=== PATIENT | male | born 1965 | race Caucasian/White ===

== ENCOUNTER 2017-07-13 05:53 | Inpatient (IN) | payer SELFPAY ==
[2017-07-13] MEDS ORDERED: Nitroglycerin 2% Ointment Foilpak UD TOP ONE (06:01)
[2017-07-13] MEDS ORDERED: Morphine 4 MG/ML VIAL ONE ×3 (06:02→08:26)
[2017-07-13] MEDS ORDERED: Heparin25000 units/250ml 1/2NS 25,000 UNITS/250 ML BAG IV ONE (06:12)
[2017-07-13 06:17] LABS: BASO % 0.1 % (0.0-2.0); EOS # 0.4 K/uL (0.0-0.7); EOS % 4.8 % (0.0-4.0); HEMATOCRIT 44.4 % (35.0-51.0); LYMPH # 2.2 K/uL (1.0-4.3); LYMPH % 27.5 % (20.0-40.0); MEAN CELL VOLUME 89.9 fL (80.0-94.0); MEAN CORPUSCULAR HEMOGLOBIN 31.4 pg (27.0-31.0); MEAN CORPUSCULAR HGB CONC 34.9 g/dL (33.0-37.0); MEAN PLATELET VOLUME 8.6 fL (7.2-11.7); MONO # 0.8 K/uL (0.0-0.8); MONO % 9.8 % (0.0-10.0); RED CELL DISTRIBUTION WIDTH 14.5 % (11.5-14.5); WHITE BLOOD COUNT 7.9 K/uL (4.8-10.8)
[2017-07-13 06:27] LABS: ALKALINE PHOSPHATASE 153 U/L (38-126); ALT/SGPT 45 U/L (21-72); AST/SGOT 24 U/L (17-59); BILIRUBIN,TOTAL 0.8 mg/dL (0.2-1.3); BLOOD UREA NITROGEN 12 mg/dL (9-20); CALCIUM 8.5 mg/dl (8.6-10.4); CARBON DIOXIDE 26 mmol/L (22-30); CHLORIDE 100 mmol/L (98-107); CHOLESTEROL 263 mg/dL (0-199); GFR AFRICAN-AMERICAN > 60; GLUCOSE,RANDOM 222 mg/dL (75-110); POTASSIUM 3.6 mmol/L (3.6-5.2); SODIUM 135 mmol/L (132-148); TOTAL PROTEIN 8.4 g/dL (6.3-8.3)
--- NOTE | 2017-07-13 06:44 | CP.PCM.HP ---
<Vipul Kapadia - Last Filed: 07/13/17 06:47> History of Present Illness - History of Present Illness History of Present Illness: PGY-1 H&P for Dr. Tripathi CC: [facility] This is a 52 year old male with no PMHx who comes in as a [facility]. Patient was awoken this morning with stabbing and squeezing chest pain localized along the left side of the chest wall. There is associated dyspnea, diaphoresis, numbness in both arms. Patient called the ambulance and EKG was taken en route which showed ST segment elevations in leads II, III, aVF and ST segment depressions in I and aVL. Patient was given full dose aspirin in the ambulance. In the ED, patient was given 1 inch of nitro-paste, 4 mg IV morphine, Brillinta 180, heparin bolus (then switched to drip). Patient states that his pain is now decreased to a 2/10 after medical management and is now not in acute distress. Patient is for cardiac cath. PMHx: denies PSHx: appendectomy Allergies: NKDA Social: Smokes 1 ppd since age 35. Social drinker, does not drink weekly. Denies drugs. 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 Family Hx: Father of MA at age 70. Mother of colon cancer. Home meds: denies PMD: None Present on Admission - Present on Admission Any Indicators Present on Admission: No Review of Systems - Constitutional Constitutional: Excessive Sweating - EENT Eyes: absent: Change in Vision - Cardiovascular Cardiovascular: Chest Pain, Diaphoresis - Respiratory Respiratory: Dyspnea - Gastrointestinal Gastrointestinal: absent: Abdominal Pain, Nausea, Vomiting - Genitourinary Genitourinary: absent: Dysuria - Musculoskeletal Musculoskeletal: Numbness (bilateral arm) - Integumentary Integumentary: absent: Rash - Neurological Neurological: Numbness (bilateral arms) - Psychiatric Psychiatric: Anxiety - Endocrine Endocrine: absent: Palpitations Past Patient History - Past Social History Smoking Status: Heavy Smoker > 10 Cigarettes Daily - PSYCHIATRIC Hx Substance Use: No - SURGICAL HISTORY Hx Appendectomy: Yes Meds Allergies/Adverse Reactions: Allergies Allergy/AdvReac Type Severity Reaction Status Date / Time No Known Allergies Allergy Verified 07/13/17 06:03 Physical Exam - Constitutional Appears: No Acute Distress - Head Exam Head Exam: ATRAUMATIC, NORMOCEPHALIC - Eye Exam Eye Exam: EOMI, PERRL - ENT Exam ENT Exam: Mucous Membranes Moist - Respiratory Exam Respiratory Exam: Clear to Auscultation Bilateral. absent: Rales, Rhonchi, Wheezes - Cardiovascular Exam Cardiovascular Exam: REGULAR RHYTHM, +S1, +S2. absent: Diastolic murmur, Systolic Murmur - GI/Abdominal Exam GI & Abdominal Exam: Distended, Normal Bowel Sounds, Soft. absent: Tenderness - Extremities Exam Extremities exam: Negative for: pedal edema, tenderness - Neurological Exam Neurological exam: Alert, CN II-XII Intact, Oriented x3 - Psychiatric Exam Psychiatric exam: Normal Affect, Normal Mood - Skin Skin Exam: Dry, Intact, Warm Results - Vital Signs Recent Vital Signs: Last Vital Signs Temp 97.6 F 07/13/17 06:22 Pulse 65 07/13/17 06:22 Resp 14 07/13/17 06:22 BP 163/103 H 07/13/17 06:22 Pulse Ox 100 07/13/17 06:22 - Labs Result Diagrams: 07/13/17 06:12 07/13/17 06:12 Labs: Laboratory Results - last 24 hr 07/13/17 07/13/17 07/13/17 06:12 06:12 06:12 WBC 7.9 RBC 4.94 Hgb 15.5 Hct 44.4 MCV 89.9 MCH 31.4 H MCHC 34.9 RDW 14.5 Plt Count 275 MPV 8.6 Neut % (Auto) 57.8 Lymph % (Auto) 27.5 [place] % (Auto) 9.8 Eos % (Auto) 4.8 H Baso % (Auto) 0.1 Neut # 4.6 Lymph # 2.2 [place] # 0.8 Eos # 0.4 Baso # 0.0 Sodium 135 Potassium 3.6 Chloride 100 Carbon Dioxide 26 Anion Gap 13 BUN 12 Creatinine 0.7 L Est GFR ( Amer) > 60 Est GFR (Non-Af Amer) > 60 POC Glucose (mg/dL) 211 H Random Glucose 222 H Calcium 8.5 L Total Bilirubin 0.8 AST 24 ALT 45 Alkaline Phosphatase 153 H Total Protein 8.4 H Albumin 4.2 Globulin 4.2 H Albumin/Globulin Ratio 1.0 Triglycerides 317 H Cholesterol 263 H HDL Cholesterol 46 Assessment & Plan - Assessment and Plan (Free Text) Plan: Code [facility], possible Inferior STEMI EKG in ambulance showed ST segment elevations in leads II, III, aVF Repeat EKG in the ED did not demonstrate the ST segment elevations seen on prior study f/u cardiac enzymes Patient is for cardiac catheterization Newly diagnosed diabetes BG 211 f/u hemoglobin A1c Case DW Dr. Bhumi Kapadia PGY-1 <Dimitri Tripathi P - Last Filed: 07/13/17 06:59> Results - Vital Signs Recent Vital Signs: Last Vital Signs Temp 97.6 F 07/13/17 06:22 Pulse 71 07/13/17 06:40 Resp 18 07/13/17 06:40 BP 154/91 H 07/13/17 06:40 Pulse Ox 100 07/13/17 06:57 - Labs Result Diagrams: 07/13/17 06:12 07/13/17 06:12 Labs: Laboratory Results - last 24 hr 07/13/17 07/13/17 07/13/17 06:12 06:12 06:12 WBC 7.9 RBC 4.94 Hgb 15.5 Hct 44.4 MCV 89.9 MCH 31.4 H MCHC 34.9 RDW 14.5 Plt Count 275 MPV 8.6 Neut % (Auto) 57.8 Lymph % (Auto) 27.5 [place] % (Auto) 9.8 Eos % (Auto) 4.8 H Baso % (Auto) 0.1 Neut # 4.6 Lymph # 2.2 [place] # 0.8 Eos # 0.4 Baso # 0.0 PT 10.8 INR 1.0 APTT 29 Sodium 135 Potassium 3.6 Chloride 100 Carbon Dioxide 26 Anion Gap 13 BUN 12 Creatinine 0.7 L Est GFR ( Amer) > 60 Est GFR (Non-Af Amer) > 60 POC Glucose (mg/dL) Random Glucose 222 H Calcium 8.5 L Total Bilirubin 0.8 AST 24 ALT 45 Alkaline Phosphatase 153 H Troponin I < 0.0120 Total Protein 8.4 H Albumin 4.2 Globulin 4.2 H Albumin/Globulin Ratio 1.0 Triglycerides 317 H Cholesterol 263 H LDL Cholesterol Direct 119 HDL Cholesterol 46 07/13/17 06:12 WBC RBC Hgb Hct MCV MCH MCHC RDW Plt Count MPV Neut % (Auto) Lymph % (Auto) [place] % (Auto) Eos % (Auto) Baso % (Auto) Neut # Lymph # [place] # Eos # Baso # PT INR APTT Sodium Potassium Chloride Carbon Dioxide Anion Gap BUN Creatinine Est GFR ( Amer) Est GFR (Non-Af Amer) POC Glucose (mg/dL) 211 H Random Glucose Calcium Total Bilirubin AST ALT Alkaline Phosphatase Troponin I Total Protein Albumin Globulin Albumin/Globulin Ratio Triglycerides Cholesterol LDL Cholesterol Direct HDL Cholesterol Attending/Attestation - Attestation I have personally seen and examined this patient.: Yes I have fully participated in the care of the patient.: Yes I have reviewed all pertinent clinical information: Yes Notes (Text): 07/13/17 06:59 See note on the same day.
[2017-07-13] MEDS ORDERED: Nitroglycerin 2% Ointment Foilpak UD TOP STA (06:45)
--- NOTE | 2017-07-13 06:45 | CP.PCM.PN ---
Subjective - Date & Time of Evaluation Date of Evaluation: 07/13/17 Time of Evaluation: 06:42 - Subjective Subjective: Assessment EKG findings of Inferior ST elevations with reciprocal changes in lead1 and avl , with initial symptoms of cp, tightness Hyperglycemia on labs HTN essential vs from current stress Tobacco abuse Plan Patient going to cath labs Cardio-protective meds brilianta, asa, heparin drip, nitro, holding on beta denia due hr in 60's Hgba1c, accucheck with sliding scale Further plan depends on further course, cath intervention results. Objective - Vital Signs/Intake and Output Vital Signs (last 24 hours): Temp Pulse Resp BP Pulse Ox 97.6 F 71 18 154/91 H 100 07/13/17 06:22 07/13/17 06:40 07/13/17 06:40 07/13/17 06:40 07/13/17 06:40 - Labs Labs: 07/13/17 06:12 07/13/17 06:12
--- NOTE | 2017-07-13 06:54 | C.PDOC ---
History Of Present Illness 52 year old male with no cardiac Hx brought in by EMS for evaluation of CP. Per EMS patient's CP woke him up from sleep at 03:00, patient was given aspirin in the field and reported his pain at 9/10. EKG obtained in the field showed ST elevations in lead III. Upon arrival CP still was maintained at 9/10 discomfort with moderate distress noted. Patient is an obese male whose CP was non reproducible digitally or positionally. Chief Complaint (Nursing): Chest Pain History Per: Patient, EMS History/Exam Limitations: no limitations Onset/Duration Of Symptoms: Hrs Current Symptoms Are (Timing): Still Present Severity: Severe Pain Scale Rating Of: 9 Quality: "Pain" Modifying Factors: None Additional History Per: Patient, EMS Past Medical History Reviewed: Historical Data, Nursing Documentation, Vital Signs Vital Signs: Last Vital Signs Temp 97.6 F 07/13/17 06:22 Pulse 71 07/13/17 06:40 Resp 18 07/13/17 06:40 BP 154/91 H 07/13/17 06:40 Pulse Ox 100 07/13/17 07:59 - Medical History PMH: No Chronic Diseases Surgical History: Appendectomy Family History: States: Unknown Family Hx - Social History Hx Tobacco Use: Yes (1 1/2 pack /day) Hx Alcohol Use: Yes (occasionally) Hx Substance Use: No - Immunization History Hx Tetanus Toxoid Vaccination: No Hx Influenza Vaccination: No Hx Pneumococcal Vaccination: No Review Of Systems Constitutional: Negative for: Fever, Chills Cardiovascular: Positive for: Chest Pain Respiratory: Negative for: Cough, Shortness of Breath Gastrointestinal: Negative for: Nausea, Vomiting, Abdominal Pain Skin: Negative for: Rash Neurological: Negative for: Weakness, Numbness, Altered Mental Status, Headache , Dizziness Physical Exam - Physical Exam Appears: Non-toxic, Other (Moderate distress, obese male) Skin: Normal Color, Warm, Dry Head: Atraumatic, Normacephalic Nose: No Discharge Oral Mucosa: Moist Neck: Normal ROM, Supple Chest: Symmetrical, Other (Non digitally or positionally reproducible chest pain ) Cardiovascular: Rhythm Regular, No Murmur Respiratory: Normal Breath Sounds, No Rales, No Rhonchi, No Wheezing Gastrointestinal/Abdominal: Soft, No Tenderness, No Distention, No Rebound Extremity: Normal ROM, No Calf Tenderness, No Deformity, No Swelling Neurological/Psych: Oriented x3, Normal Speech, Normal Cognition ED Course And Treatment - Laboratory Results Result Diagrams: 07/13/17 06:12 07/13/17 06:12 ECG: Interpreted By Me, Viewed By Me, Discussed With Pressurizer (Dr. Roberson) ECG Rhythm: ST/T Changes (elevations on lead III) Interpretation Of ECG: Reciprocal changes on lead I and aVL O2 Sat by Pulse Oximetry: 100 (On RA) Pulse Ox Interpretation: Normal - Radiology CXR: Viewed By Me, Read By Radiologist CXR Interpretation: No: No Acute Disease, Infiltrates Critical Care Time - Critical Care Note Total Time (in mins): 90 Documented critical care: time excludes all time spent performing seperately billable procedures. Medical Decision Making Medical Decision Making: Plan: 0555: pt arrived in ED with EMS/Chest pain * 06:00 was called and EKG's texted for his review * 06:05 Code heart was called * 06:20 Dr. Roberson arrived in the ED * Pt was given Heparin bolus * Heparin drip * Brilinta 180 mg PO * Morphine 4 mg IVP * Nitroglycerin 1 inch top * CXR * EKG * Blood work 06:35 Cath Team notified (per ED Amelia) * 0720: recurrent chest pain, repeat EKG without new changes, Morphine 4 IV, pending [facility] 0740 pt left ED to [facility] Disposition Doctor Will See Patient In The: Hospital Counseled Patient/Family Regarding: Studies Performed, Diagnosis - Disposition Disposition: HOSPITALIZED Disposition Time: 07:58 Condition: FAIR - POA Core Measure Indicators: Code Heart - Clinical Impression Clinical Impression: STEMI (ST elevation myocardial infarction) - Scribe Statement The provider has reviewed the documentation as recorded by the Scribe Patrick Caban All medical record entries made by the Scribe were at my direction and personally dictated by me. I have reviewed the chart and agree that the record accurately reflects my personal performance of the history, physical exam, medical decision making, and the department course for this patient. I have also personally directed, reviewed, and agree with the discharge instructions and disposition.
[2017-07-13] MEDS ORDERED: Midazolam 2 MG/2 ML VIAL ONE (07:56)
[2017-07-13] MEDS ORDERED: Morphine 4 MG/ML VIAL IV ONE (08:18)
--- NOTE | 2017-07-13 09:07 | RAD ---
HISTORY: Chest pain COMPARISON: No prior. FINDINGS: LUNGS: The lungs are clear. PLEURA: No significant pleural effusion identified, no pneumothorax apparent. CARDIOVASCULAR: Normal. OSSEOUS STRUCTURES: No significant abnormalities. VISUALIZED UPPER ABDOMEN: Normal. OTHER FINDINGS: None. IMPRESSION: No active pulmonary disease.
--- NOTE | 2017-07-13 09:08 | CP.PCM.CON ---
History of Present Illness - History of Present Illness History of Present Illness: Consultation for inferior wall STEMI HPI: 52 year old male presenting with c/o chest pains that woke him up at 3 am associated with SOB and diaphoresis. Initially pain was intermittent described as pressure like sensation 9/10 in intensity associated with SOB which in the subsquent hour became intense and constant. On arrival of EMS , 12 lead EKG done showed ST elevations in inferior leads with reciprocal changes in high lateral leads. Patient received nitroglycerin, asa and plavix in ED. Subsequent EKG done in the ED showed resolution of ST elevations but patient continues to have waxing intermittent chest pains. Review of Systems - Review of Systems All systems: reviewed and no additional remarkable complaints except - Constitutional Constitutional: As Per HPI, Fatigue. absent: Anorexia, Chills, Daytime Sleepiness, Excessive Sweating, Fever, Frequent Falls, Headache, Increased Appetite, Lethargy, Malaise, Night Sweats, Snoring, Sleep Apnea, Weight Gain, Weight Loss, Weakness, Other - EENT Eyes: As Per HPI. absent: Blind Spots, Blurred Vision, Change in Vision, Decreased Night Vision, Diplopia, Discharge, Dry Eye, Exophthalmos, Floaters, Irritation, Itchy Eyes, Loss of Peripheral Vision, Pain, Photophobia, Requires Corrective Lenses, Sees Flashes, Spots in Vision, Tunnel Vision, Other Visual Disturbances, Loss of Vision, Other Ears: As Per HPI. absent: Decreased Hearing, Ear Discharge, Ear Pain, Tinnitus , Abnormal Hearing, Disequilibrium, Dizziness, Other Nose/Mouth/Throat: As Per HPI. absent: Epistaxis, Nasal Congestion, Nasal Discharge, Nasal Obstruction, Nasal Trauma, Nose Pain, Post Nasal Drip, Sinus Pain, Sinus Pressure, Bleeding Gums, Change in Voice, Dental Pain, Dry Mouth, Dysphagia, Halitosis, Hoarsness, Lip Swelling, Mouth Lesions, Mouth Pain, Odynophagia, Sore Throat, Throat Swelling, Tongue Swelling, Facial Pain, Neck Pain, Neck Mass, Other - Cardiovascular Cardiovascular: As Per HPI, Chest Pain, Chest Pain at Rest, Diaphoresis, Dyspnea. absent: Acrocyanosis, Chest Pain with Activity, Claudication, Dyspnea on Exertion, Edema, Irregular Heart Rhythm, Pain Radiating to Arm/Neck/Jaw, Leg Edema, Leg Ulcers, Lightheadedness, Orthopnea, Palpitations, Paroxysmal Nocturnal Dyspnea, Pedal Edema, Radiating Pain, Rapid Heart Rate, Slow Heart Rate, Syncope, Other - Respiratory Respiratory: As Per HPI. absent: Cough, Dyspnea, Hemoptysis, Dyspnea on Exertion, Wheezing, Snoring, Stridor, Pain on Inspiration, Chest Congestion, Excessive Mucous Production, Change in Mucous Color, Pain with Coughing, Other - Gastrointestinal Gastrointestinal: As Per HPI. absent: Abdominal Pain, Belching, Bloating, Change in Bowel Habits, Change in Stool Character, Coffee Ground Emesis, Constipation, Cramping, Diarrhea, Dyspepsia, Dysphagia, Early Satiety, Excessive Flatus, Fecal Incontinence, Heartburn, Hematemesis, Hematochezia, Loose Stools, Melena, Nausea, Odynophagia, Temesmus, Vomiting, Other - Genitourinary Genitourinary: As Per HPI. absent: Change in Urinary Stream, Difficulty Urinating, Dysuria, Flank Pain, Hematuria, Pyuria, Nocturia, Urinary Incontinence, Urinary Frequency, Urinary Hesitance, Urinary Urgency, Voiding Freq/Small Amts, Freq UTI, Hx Renal/Bladder Calculi, Hx /Renal Surgery, Bladder Distension, Other - Reproductive: Male Reproductive:Male: As Per HPI - Musculoskeletal Musculoskeletal: As Per HPI. absent: Abnormal Gait, Arthralgias, Atrophy, Back Pain, Deformity, Joint Swelling, Limited Range of Motion, Loss of Height, Muscle Cramps, Muscle Weakness, Myalgias, Neck Pain, Numbness, Radiating Pain into Limb, Stiffness, Tingling, Other - Integumentary Integumentary: As Per HPI. absent: Acne, Alopecia, Bleeding Lesions, Change in Hair, Change in Nails, Change in Pigmentation, Changing Lesions, Dry Skin, Erythema, Furuncle, Hirsutism, Lesions, New Lesions, Non-Healing Lesions, Photosensitivity, Pruritus, Rash, Skin Pain, Skin Ulcer, Sores, Striae, Swelling , Unusual Bruising, Wounds, Jaundice, Other - Neurological Neurological: As Per HPI. absent: Abnormal Gait, Abnormal Hearing, Abnormal Movements, Abnormal Speech, Behavioral Changes, Burning Sensations, Confusion, Convulsions, Disequilibrium, Dizziness, Numbness, Focal Weakness, Frequent Falls , Headaches, Lack of Coordination, Loss of Vision, Memory Loss, Paresthesias, Radicular Pain, Restless Legs, Sensory Deficit, Syncope, Tingling, Tremor, Vertigo, Weakness, Other Visual Disturbances, Other - Psychiatric Psychiatric: As Per HPI. absent: Abnormal Sleep Pattern, Anhedonia, Anxiety, Auditory Hallucinations, Behavioral Changes, Change in Appetite, Change in Libido, Confusion, Depression, Difficulty Concentrating, Hallucinations, Homicidal Ideation, Hopelessness, Irritability, Memory Loss, Mood Swings, Panic Attacks, Paranoia, Suicidal Ideation, Visual Hallucinations, Tactile Hallucinations, Other - Endocrine Endocrine: As Per HPI. absent: Change in Body Appearance, Change in Libido, Cold Intolorance, Deepening of Voice, Excessive Sweating, Fatigue, Flushing, Heat Intolorance, Increase in Ring/Shoe/Hat Size, Palpitations, Polydipsia, Polyphagia, Polyuria, Other - Hematologic/Lymphatic Hematologic: As Per HPI. absent: Easy Bleeding, Easy Bruising, Lymphadenopathy , Other Past Patient History - Past Social History Smoking Status: Heavy Smoker > 10 Cigarettes Daily - PSYCHIATRIC Hx Substance Use: No - SURGICAL HISTORY Hx Appendectomy: Yes Meds Allergies/Adverse Reactions: Allergies Allergy/AdvReac Type Severity Reaction Status Date / Time No Known Allergies Allergy Verified 07/13/17 06:03 - Medications Medications: Current Medications Famotidine (Pepcid) 40 mg PO DAILY EMERY Insulin Human Regular (Novolin R) 0 unit SC ACHS EMERY PRN Reason: Protocol Rosuvastatin Calcium (Crestor) 20 mg PO HS EMERY Physical Exam - Constitutional Appears: Well - Head Exam Head Exam: ATRAUMATIC, NORMAL INSPECTION - Eye Exam Eye Exam: EOMI, Normal appearance, PERRL Pupil Exam: NORMAL ACCOMODATION, PERRL - ENT Exam ENT Exam: Mucous Membranes Moist, Normal Exam - Neck Exam Neck exam: Positive for: Normal Inspection - Respiratory Exam Respiratory Exam: Clear to Auscultation Bilateral, NORMAL BREATHING PATTERN - Cardiovascular Exam Cardiovascular Exam: REGULAR RHYTHM, RRR, +S1, +S2, Systolic Murmur - GI/Abdominal Exam GI & Abdominal Exam: Normal Bowel Sounds, Soft. absent: Tenderness - Back Exam Back exam: NORMAL INSPECTION - Neurological Exam Neurological exam: Alert, CN II-XII Intact, Normal Gait, Oriented x3, Reflexes Normal - Psychiatric Exam Psychiatric exam: Normal Affect, Normal Mood - Skin Skin Exam: Dry, Intact, Normal Color, Warm Results - Vital Signs Recent Vital Signs: Last Vital Signs Temp 97.6 F 07/13/17 06:22 Pulse 71 12/24/17 06:40 Resp 18 07/13/17 06:40 BP 154/91 H 07/13/17 06:40 Pulse Ox 100 07/13/17 08:00 - Labs Result Diagrams: 07/13/17 06:12 07/13/17 06:12 Labs: Laboratory Results - last 24 hr 07/13/17 07/13/17 07/13/17 06:12 06:12 06:12 WBC 7.9 RBC 4.94 Hgb 15.5 Hct 44.4 MCV 89.9 MCH 31.4 H MCHC 34.9 RDW 14.5 Plt Count 275 MPV 8.6 Neut % (Auto) 57.8 Lymph % (Auto) 27.5 [place] % (Auto) 9.8 Eos % (Auto) 4.8 H Baso % (Auto) 0.1 Neut # 4.6 Lymph # 2.2 [place] # 0.8 Eos # 0.4 Baso # 0.0 PT 10.8 INR 1.0 APTT 29 Sodium 135 Potassium 3.6 Chloride 100 Carbon Dioxide 26 Anion Gap 13 BUN 12 Creatinine 0.7 L Est GFR ( Amer) > 60 Est GFR (Non-Af Amer) > 60 POC Glucose (mg/dL) Random Glucose 222 H Calcium 8.5 L Total Bilirubin 0.8 AST 24 ALT 45 Alkaline Phosphatase 153 H Troponin I < 0.0120 Total Protein 8.4 H Albumin 4.2 Globulin 4.2 H Albumin/Globulin Ratio 1.0 Triglycerides 317 H Cholesterol 263 H LDL Cholesterol Direct 119 HDL Cholesterol 46 Blood Type Antibody Screen 07/13/17 07/13/17 06:12 07:32 WBC RBC Hgb Hct MCV MCH MCHC RDW Plt Count MPV Neut % (Auto) Lymph % (Auto) [place] % (Auto) Eos % (Auto) Baso % (Auto) Neut # Lymph # [place] # Eos # Baso # PT INR APTT Sodium Potassium Chloride Carbon Dioxide Anion Gap BUN Creatinine Est GFR ( Amer) Est GFR (Non-Af Amer) POC Glucose (mg/dL) 211 H Random Glucose Calcium Total Bilirubin AST ALT Alkaline Phosphatase Troponin I Total Protein Albumin Globulin Albumin/Globulin Ratio Triglycerides Cholesterol LDL Cholesterol Direct HDL Cholesterol Blood Type O NEGATIVE Antibody Screen Negative Assessment & Plan (1) STEMI (ST elevation myocardial infarction) Assessment and Plan: cont DAPT ( asa and brilinta ) GDMT for CAD ( BB , nitrates, statins, acei ) echo telemetry/icu x 24 hours Status: Acute (2) HTN (hypertension) Status: Acute
[2017-07-13] MEDS: (Novolin R) Insulin Human Regular 100 units/ml vial SC SCH ×3 (11:44→21:21)
[2017-07-13 12:06] LABS: MAGNESIUM 1.5 mg/dL (1.6-2.3)
[2017-07-13 12:20] LABS: TROPONIN I 26.3 ng/mL (0.00-0.120)
[2017-07-13] MEDS ORDERED: Potassium Chloride 20 mEq/15 ml LIQ UD PO ONE (15:48)
--- NOTE | 2017-07-13 15:56 | CP.PCM.CON ---
History of Present Illness - History of Present Illness History of Present Illness: This is a 52 year old male with no PMHx who comes in as a [facility]. Patient was awoken this morning with stabbing and squeezing chest pain localized along the left side of the chest wall. There is associated dyspnea, diaphoresis, numbness in both arms. Patient called the ambulance and EKG was taken en route which showed ST segment elevations in leads II, III, aVF and ST segment depressions in I and aVL. Patient was given full dose aspirin in the ambulance. In the ED, patient was given 1 inch of nitro-paste, 4 mg IV morphine, Brillinta 180, heparin bolus (then switched to drip). Patient states that his pain is now decreased to a 2/10 after medical management and is now not in acute distress. Patient is for cardiac cath. PMHx: denies PSHx: appendectomy Allergies: NKDA Social: Smokes 1 ppd since age 35. Social drinker, does not drink weekly. Denies drugs. 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 Family Hx: Father of MD at age 70. Mother of colon cancer. Home meds: denies PMD: None review of system: Currently company of some headache, denies any visual symptom, chest discomfort negative. No fever, no chills noted, patient is otherwise feeling well. Vital signs reviewed No neck vein distention noted Chest good air entry bilaterally, no wheezing or rales noted CVS regular heart sound, no murmur noted Abdomen soft, nontender. 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 Assessment/recommendation: 52 male with past medical history smoking in the past admitted to hospital with acute chest pain. Inferior wall MD noted. Patient status post stent placement. Clinical stable. Continue to monitor. We'll follow the patient. Past Patient History - Past Medical History & Family History Past Medical History?: Yes - Past Social History Smoking Status: Heavy Smoker > 10 Cigarettes Daily - CARDIAC Hx Angina: Yes Hx Heart Attack: Yes Hx Hypertension: Yes - MUSCULOSKELETAL/RHEUMATOLOGICAL Hx Arthritis: Yes Hx Falls: No - PSYCHIATRIC Hx Substance Use: No - SURGICAL HISTORY Hx Appendectomy: Yes - ANESTHESIA Hx Anesthesia: Yes Hx Anesthesia Reactions: No Hx Malignant Hyperthermia: No Meds Allergies/Adverse Reactions: Allergies Allergy/AdvReac Type Severity Reaction Status Date / Time No Known Allergies Allergy Verified 07/13/17 06:03 - Medications Medications: Current Medications Aspirin (Ecotrin) 81 mg PO DAILY [facility] Last Admin: 07/13/17 09:51 Dose: Not Given Enalapril Maleate (Vasotec) 10 mg PO DAILY [facility] Last Admin: 07/13/17 11:30 Dose: 10 mg Famotidine (Pepcid) 40 mg PO DAILY [facility] Last Admin: 07/13/17 11:28 Dose: 40 mg Magnesium Sulfate/Dextrose (Magnesium Sulfate 1 Gm/100 Ml D5w) 1 gm in 100 mls @ 200 mls/hr IVPB Q30M [facility] Stop: 07/13/17 16:59 Insulin Human Regular (Novolin R) 0 unit SC ACHS [facility] PRN Reason: Protocol Last Admin: 07/13/17 11:44 Dose: 2 unit Metoprolol Tartrate (Lopressor) 12.5 mg PO BID [facility] Nicotine (Nicoderm Cq) 1 patch TD DAILY [facility] Last Admin: 07/13/17 11:28 Dose: 1 patch Pneumococcal Polyvalent Vaccine (Pneumovax 23 Vaccine) 0.5 ml IM .ONCE ONE Stop: 07/15/17 10:01 Rosuvastatin Calcium (Crestor) 20 mg PO HS [facility] Ticagrelor (Brilinta) 90 mg PO BID [facility] Results - Vital Signs Recent Vital Signs: Last Vital Signs Temp 97.7 F 07/13/17 12:00 Pulse 75 07/13/17 15:30 Resp 15 07/13/17 15:30 BP 126/86 07/13/17 15:21 Pulse Ox 98 07/13/17 15:30 - Labs Result Diagrams: 07/13/17 06:12 07/13/17 06:12 Labs: Laboratory Results - last 24 hr 07/13/17 07/13/17 07/13/17 06:12 06:12 06:12 WBC 7.9 RBC 4.94 Hgb 15.5 Hct 44.4 MCV 89.9 MCH 31.4 H MCHC 34.9 RDW 14.5 Plt Count 275 MPV 8.6 Neut % (Auto) 57.8 Lymph % (Auto) 27.5 Crisp % (Auto) 9.8 Eos % (Auto) 4.8 H Baso % (Auto) 0.1 Neut # 4.6 Lymph # 2.2 Crisp # 0.8 Eos # 0.4 Baso # 0.0 PT 10.8 INR 1.0 APTT 29 Sodium 135 Potassium 3.6 Chloride 100 Carbon Dioxide 26 Anion Gap 13 BUN 12 Creatinine 0.7 L Est GFR ( Amer) > 60 Est GFR (Non-Af Amer) > 60 POC Glucose (mg/dL) Random Glucose 222 H Calcium 8.5 L Magnesium Total Bilirubin 0.8 AST 24 ALT 45 Alkaline Phosphatase 153 H Total Creatine Kinase CK-MB (Mass) Troponin I < 0.0120 Total Protein 8.4 H Albumin 4.2 Globulin 4.2 H Albumin/Globulin Ratio 1.0 Triglycerides 317 H Cholesterol 263 H LDL Cholesterol Direct 119 HDL Cholesterol 46 Blood Type Antibody Screen 07/13/17 07/13/17 07/13/17 06:12 07:32 09:29 WBC RBC Hgb Hct MCV MCH MCHC RDW Plt Count MPV Neut % (Auto) Lymph % (Auto) Crisp % (Auto) Eos % (Auto) Baso % (Auto) Neut # Lymph # Crisp # Eos # Baso # PT INR APTT Sodium Potassium Chloride Carbon Dioxide Anion Gap BUN Creatinine Est GFR ( Amer) Est GFR (Non-Af Amer) POC Glucose (mg/dL) 211 H 191 H Random Glucose Calcium Magnesium Total Bilirubin AST ALT Alkaline Phosphatase Total Creatine Kinase CK-MB (Mass) Troponin I Total Protein Albumin Globulin Albumin/Globulin Ratio Triglycerides Cholesterol LDL Cholesterol Direct HDL Cholesterol Blood Type O NEGATIVE Antibody Screen Negative 07/13/17 07/13/17 11:38 11:39 WBC RBC Hgb Hct MCV MCH MCHC RDW Plt Count MPV Neut % (Auto) Lymph % (Auto) Crisp % (Auto) Eos % (Auto) Baso % (Auto) Neut # Lymph # Crisp # Eos # Baso # PT INR APTT Sodium Potassium Chloride Carbon Dioxide Anion Gap BUN Creatinine Est GFR ( Amer) Est GFR (Non-Af Amer) POC Glucose (mg/dL) 180 H Random Glucose Calcium Magnesium 1.5 L Total Bilirubin AST ALT Alkaline Phosphatase Total Creatine Kinase 752 H CK-MB (Mass) 37.3 H Troponin I 26.3000 H* Total Protein Albumin Globulin Albumin/Globulin Ratio Triglycerides Cholesterol LDL Cholesterol Direct HDL Cholesterol Blood Type Antibody Screen
[2017-07-13] MEDS: Magnesium Sulfate 1 gm in D5W 1 GM/100 ML BAG IVPB SCH ×2 (16:04→16:05)
[2017-07-13] MEDS ORDERED: PPN #2 IV SCH (18:00)
[2017-07-14 06:29] LABS: BASO # 0.1 K/uL (0.0-0.2); BASO % 1.2 % (0.0-2.0); EOS # 0.2 K/uL (0.0-0.7); EOS % 2.3 % (0.0-4.0); HEMATOCRIT 40.5 % (35.0-51.0); LYMPH # 1.4 K/uL (1.0-4.3); LYMPH % 13.2 % (20.0-40.0); MEAN CELL VOLUME 89.8 fL (80.0-94.0); MEAN CORPUSCULAR HGB CONC 34.5 g/dL (33.0-37.0); MEAN PLATELET VOLUME 8.3 fL (7.2-11.7); MONO # 0.9 K/uL (0.0-0.8); MONO % 8.8 % (0.0-10.0); RED CELL DISTRIBUTION WIDTH 14.7 % (11.5-14.5); WHITE BLOOD COUNT 10.4 K/uL (4.8-10.8)
[2017-07-14 06:47] LABS: ALB/GLOB RATIO 1.1 (1.0-2.1); ALKALINE PHOSPHATASE 110 U/L (38-126); ALT/SGPT 50 U/L (21-72); AST/SGOT 93 U/L (17-59); BILIRUBIN,TOTAL 0.8 mg/dL (0.2-1.3); BLOOD UREA NITROGEN 11 mg/dL (9-20); CARBON DIOXIDE 25 mmol/L (22-30); CHLORIDE 100 mmol/L (98-107); CHOLESTEROL 212 mg/dL (0-199); GFR AFRICAN-AMERICAN > 60; GLUCOSE,RANDOM 224 mg/dL (75-110); MAGNESIUM 1.8 mg/dL (1.6-2.3); SODIUM 132 mmol/L (132-148); TOTAL PROTEIN 7.2 g/dL (6.3-8.3)
[2017-07-14 07:13] LABS: THYROID STIMULATING HORMONE 0.45 mIU/L (0.46-4.68)
[2017-07-14] MEDS: (Novolin R) Insulin Human Regular 100 units/ml vial SC SCH ×4 (07:50→22:45)
--- NOTE | 2017-07-14 10:42 | CP.PCM.PN ---
Subjective - Date & Time of Evaluation Date of Evaluation: 07/14/17 Time of Evaluation: 10:30 - Subjective Subjective: Medicine Attending Note: Patient seen and examined at bedside. Patient denies headache, denies chest pain , denies palpitations, denies abdominal pain, denies nausea, denies vomitting. I had a direct conversation with the patient about the following: * He is a diabetic: a1c: 8.8-->I advised him strongly to reduce his carbohydrate intake, engage in exercise, reduce his weight. I discussed with him risk including but not limited to stroke, heart attack, kidney failure, delayed wound healing, and loss of limb. * He has lipid disorder: Elevated triglycerides and cholestrol. He reports he eats whatever he wants whether it be chicken with skin, he hates vegetables, he hates beans/lentils, think he can lay of red meat. I advised him, he needs to start making lifestyle change other he will continue to be at risk. * He is a smoker. I advised he clearly that he poses further risk to his heart, cancer, premature aging. He is able to clearly understand the risk. He understands there are options to tobacco cessation including: gum and patches. He understands he needs to WANT to stop smoking. * Advised patient he will likely need to see a pulmonary doctor for possible sleep study given he reports he does not sleep, reports he has choking sensation while he sleeps, and reports he does snore for strong suspicion for obstructive sleep apnea. If patient does have sleep apnea, I have reported to him that will increase his risk for heart attack and stroke. Patient is stubborn and wants to go home tomorrow. I specifically told him he should wait until he is evaluated by cardiology in light of his heart condition and should speak with cardiology in terms of going back to work. 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 I recommended to the patient to [facility] since he has never seen a doctor in quite some time. Patient's girlfriend is at bedside. Patient permits me to speak with her in regards to his medical problems. Girlfriend is familiar with both diabetes and cholesterol. Objective - Vital Signs/Intake and Output Vital Signs (last 24 hours): Temp Pulse Resp BP Pulse Ox 98 F 81 12 140/99 H 99 07/14/17 08:00 07/14/17 08:21 07/14/17 08:21 07/14/17 08:21 07/14/17 08:00 Intake and Output: 07/14/17 07/14/17 06:59 18:59 Intake Total 540 240 Output Total 1300 Balance -760 240 - Medications Medications: Current Medications Aspirin (Ecotrin) 81 mg PO DAILY [facility] Last Admin: 07/13/17 09:51 Dose: Not Given Enalapril Maleate (Vasotec) 10 mg PO DAILY [facility] Last Admin: 07/13/17 11:30 Dose: 10 mg Famotidine (Pepcid) 40 mg PO DAILY [facility] Last Admin: 07/13/17 11:28 Dose: 40 mg Insulin Human Regular (Novolin R) 0 unit SC [facility] PRN Reason: Protocol Last Admin: 07/13/17 21:21 Dose: Not Given Metoprolol Tartrate (Lopressor) 12.5 mg PO BID [facility] Last Admin: 07/13/17 17:16 Dose: 12.5 mg Nicotine (Nicoderm Cq) 1 patch TD DAILY [facility] Last Admin: 07/13/17 11:28 Dose: 1 patch Pneumococcal Polyvalent Vaccine (Pneumovax 23 Vaccine) 0.5 ml IM .ONCE ONE Stop: 07/15/17 10:01 Rosuvastatin Calcium (Crestor) 20 mg PO HS [facility] Last Admin: 07/13/17 21:20 Dose: 20 mg Ticagrelor (Brilinta) 90 mg PO BID [facility] Last Admin: 07/13/17 17:16 Dose: 90 mg - Labs Labs: 07/14/17 06:22 07/14/17 06:22 PT 10.8 SECONDS (9.7-12.2) 07/13/17 06:12 INR 1.0 07/13/17 06:12 APTT 29 SECONDS (21-34) 07/13/17 06:12 - Constitutional Appears: Non-toxic, No Acute Distress - Head Exam Head Exam: NORMAL INSPECTION - Eye Exam Eye Exam: EOMI - ENT Exam ENT Exam: Mucous Membranes Moist - Respiratory Exam Respiratory Exam: Clear to Ausculation Bilateral, NORMAL BREATHING PATTERN. absent: Rales, Rhonchi - Cardiovascular Exam Cardiovascular Exam: REGULAR RHYTHM, +S1, +S2 - GI/Abdominal Exam GI & Abdominal Exam: Soft, Normal Bowel Sounds. absent: Distended, Firm, Guarding, Rigid, Tenderness, Rebound Additional comments: obese habitus - Extremities Exam Extremities Exam: absent: Pedal Edema, Tenderness - Back Exam Back Exam: absent: CVA tenderness (L), CVA tenderness (R) - Neurological Exam Neurological Exam: Alert, Awake, Oriented x3 - Psychiatric Exam Psychiatric exam: Agitated - Skin Skin Exam: Dry, Intact, Normal Color, Warm Assessment and Plan (1) STEMI (ST elevation myocardial infarction) Assessment & Plan: Pending cardiac cath POD 07/13 Order echo RCA lesion s/ stent placement Aspirin 81mg PO daily d/c Lopressor 12.5mg PO BID-->change to Toprol XL 25mg PO daily Crestor 20mg POqHS Brilinta 80mg PO BID Enalapril 10mg PO daily--> change toisinopril 10mg PO daily Discussed with cardiology, patient is not stable for discharge today. He is AMA if he elects to go. Status: Acute (2) Diabetes Assessment & Plan: Acute, newly diagnosed Extensive discussion in regards to diabetes. [employer] referral Metformin 1000mg PO BID-->will start tomorrow in light of cardiac cath Advised weight loss modifications Status: Acute (3) Hypertension Status: Acute (4) Tobacco abuse Assessment & Plan: Advised tobacco cessation Very detailed discussion about the adverse side effects of continued smoking Status: Chronic (5) Lipid disorder Assessment & Plan: Elevated TG, and elevated cholestrol Low HDL Will start [place] 3- FAs; will need OTC Fish oil upon discharge Advised lifestyle and diet modifcations Status: Acute (6) Morbid obesity Assessment & Plan: Advised to make diet modfications Poses additional risks for his diabetes, cad, lipid disorder, and weight loss will help to make improvements to all Status: Chronic (7) Prophylactic measure Assessment & Plan: pepcid 40mg PO daily Aspirin 81mg PO daily Brilinta 90mg PO BID Status: Acute
[2017-07-14] MEDS: Metoprolol Succinate 25 mg XL Tab PO SCH (13:37)
--- NOTE | 2017-07-14 17:17 | CP.CCUPN ---
CCU Subjective - Physician Review Events Since Last Encounter (Free Text): 07/14/17 17:16 52-year-old male admitted with inferior wall CT. Status post PTCA. Currently stable. No chest pain. Denies any nausea vomiting Vital signs reviewed No neck vein distention noted Chest good air entry bilaterally, no wheezing or rales noted CVS regular heart sound, no murmur noted Abdomen soft, nontender. 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 Obesity. Diabetes. Patient can be transferred. Beta denia, antiplatelets. Diet control. CCU Objective - Vital Signs / Intake & Output Vital Signs (Last 4 hours): Vital Signs Temp Pulse Resp BP Pulse Ox 07/14/17 17:00 69 16 99 07/14/17 16:21 61 12 131/81 95 07/14/17 16:00 67 13 99 07/14/17 15:56 66 15 110/68 07/14/17 15:25 98 F 66 18 110/77 99 07/14/17 15:22 72 12 96 07/14/17 15:00 74 18 07/14/17 14:21 71 13 104/59 L 07/14/17 13:21 68 18 110/74 Intake and Output (Last 8hrs): Intake & Output 07/14/17 07/14/17 07/14/17 06:59 14:59 22:59 Intake Total 100 1100 Output Total 800 500 200 Balance -700 600 -200 Intake: Intake, IV Amount 0 Left Hand 0 Oral 100 1100 Output: Urine 800 500 200 Urine, Voided 800 500 200 - Medications Active Medications: Active Medications Generic Name Dose Route Start Last Admin Trade Name Freq PRN Reason Stop Dose Admin Aspirin 81 mg 07/13/17 10:00 07/14/17 13:37 Ecotrin PO 81 mg DAILY [facility] Administration Famotidine 40 mg 07/13/17 10:00 07/14/17 13:45 Pepcid PO 40 mg DAILY [facility] Administration Insulin Human Regular 0 unit 07/13/17 11:30 07/14/17 12:00 Novolin R SC 2 unit ACHS [facility] Administration Protocol Lisinopril 10 mg 07/14/17 11:00 07/14/17 13:38 Zestril PO 10 mg DAILY [facility] Administration Metformin HCl 500 mg 07/15/17 10:00 Glucophage PO BID [facility] Metoprolol Succinate 25 mg 07/14/17 11:00 07/14/17 13:37 Toprol Xl PO 25 mg DAILY [facility] Administration Nicotine 1 patch 07/13/17 11:00 07/14/17 11:03 Nicoderm Cq TD 1 patch DAILY [facility] Administration Pneumococcal Polyvalent Vaccine 0.5 ml 07/15/17 10:00 Pneumovax 23 Vaccine IM 07/15/17 10:01 .ONCE ONE Rosuvastatin Calcium 20 mg 07/13/17 22:00 07/13/17 21:20 Crestor PO 20 mg HS [facility] Administration Ticagrelor 90 mg 07/13/17 18:00 07/14/17 11:02 Brilinta PO 90 mg BID [facility] Administration - Patient Studies Lab Studies: Microbiology Studies 07/13/17 Unknown MRSA Culture (Admit) - Final Naris MRSA NOT DETECTED Lab Studies 07/14/17 07/14/17 07/14/17 Range/Units 16:04 12:11 07:29 WBC (4.8-10.8) K/uL RBC (4.40-5.90) Mil/uL Hgb (12.0-18.0) g/dL Hct (35.0-51.0) % MCV (80.0-94.0) fL MCH (27.0-31.0) pg MCHC (33.0-37.0) g/dL RDW (11.5-14.5) % Plt Count (130-400) K/uL MPV (7.2-11.7) fL Neut % (Auto) (50.0-75.0) % Lymph % (Auto) (20.0-40.0) % Stephens % (Auto) (0.0-10.0) % Eos % (Auto) (0.0-4.0) % Baso % (Auto) (0.0-2.0) % Neut # (1.8-7.0) K/uL Lymph # (1.0-4.3) K/uL Stephens # (0.0-0.8) K/uL Eos # (0.0-0.7) K/uL Baso # (0.0-0.2) K/uL Sodium (132-148) mmol/L Potassium (3.6-5.2) mmol/L Chloride (98-107) mmol/L Carbon Dioxide (22-30) mmol/L Anion Gap (10-20) BUN (9-20) mg/dL Creatinine (0.8-1.5) mg/dL Est GFR ( Amer) Est GFR (Non-Af Amer) POC Glucose (mg/dL) 164 H 161 H 170 H (65-110) mg/dL Random Glucose (75-110) mg/dL Hemoglobin A1c (4.2-6.5) % Calcium (8.6-10.4) mg/dl Magnesium (1.6-2.3) mg/dL Total Bilirubin (0.2-1.3) mg/dL AST (17-59) U/L ALT (21-72) U/L Alkaline Phosphatase (38-126) U/L Total Protein (6.3-8.3) g/dL Albumin (3.5-5.0) g/dL Globulin (2.2-3.9) gm/dL Albumin/Globulin Ratio (1.0-2.1) Triglycerides (0-149) mg/dL Cholesterol (0-199) mg/dL LDL Cholesterol Direct (0-129) mg/dL HDL Cholesterol (30-70) mg/dL TSH 3rd Generation (0.46-4.68) mIU/L 07/14/17 07/14/17 07/14/17 Range/Units 06:22 06:22 06:22 WBC 10.4 (4.8-10.8) K/uL RBC 4.51 (4.40-5.90) Mil/uL Hgb 14.0 (12.0-18.0) g/dL Hct 40.5 (35.0-51.0) % MCV 89.8 (80.0-94.0) fL MCH 31.0 (27.0-31.0) pg MCHC 34.5 (33.0-37.0) g/dL RDW 14.7 H (11.5-14.5) % Plt Count 281 (130-400) K/uL MPV 8.3 (7.2-11.7) fL Neut % (Auto) 74.5 (50.0-75.0) % Lymph % (Auto) 13.2 L (20.0-40.0) % Stephens % (Auto) 8.8 (0.0-10.0) % Eos % (Auto) 2.3 (0.0-4.0) % Baso % (Auto) 1.2 (0.0-2.0) % Neut # 7.7 H (1.8-7.0) K/uL Lymph # 1.4 (1.0-4.3) K/uL Stephens # 0.9 H (0.0-0.8) K/uL Eos # 0.2 (0.0-0.7) K/uL Baso # 0.1 (0.0-0.2) K/uL Sodium 132 (132-148) mmol/L Potassium 4.0 (3.6-5.2) mmol/L Chloride 100 (98-107) mmol/L Carbon Dioxide 25 (22-30) mmol/L Anion Gap 10 (10-20) BUN 11 (9-20) mg/dL Creatinine 0.7 L (0.8-1.5) mg/dL Est GFR ( Amer) > 60 Est GFR (Non-Af Amer) > 60 POC Glucose (mg/dL) (65-110) mg/dL Random Glucose 224 H (75-110) mg/dL Hemoglobin A1c 8.8 H (4.2-6.5) % Calcium 8.0 L (8.6-10.4) mg/dl Magnesium 1.8 (1.6-2.3) mg/dL Total Bilirubin 0.8 (0.2-1.3) mg/dL AST 93 H D (17-59) U/L ALT 50 (21-72) U/L Alkaline Phosphatase 110 (38-126) U/L Total Protein 7.2 (6.3-8.3) g/dL Albumin 3.7 (3.5-5.0) g/dL Globulin 3.5 (2.2-3.9) gm/dL Albumin/Globulin Ratio 1.1 (1.0-2.1) Triglycerides 444 H D (0-149) mg/dL Cholesterol 212 H (0-199) mg/dL LDL Cholesterol Direct 91 (0-129) mg/dL HDL Cholesterol 39 (30-70) mg/dL TSH 3rd Generation 0.45 L (0.46-4.68) mIU/L 07/13/17 07/13/17 07/13/17 Range/Units 21:18 16:43 06:12 WBC (4.8-10.8) K/uL RBC (4.40-5.90) Mil/uL Hgb (12.0-18.0) g/dL Hct (35.0-51.0) % MCV (80.0-94.0) fL MCH (27.0-31.0) pg MCHC (33.0-37.0) g/dL RDW (11.5-14.5) % Plt Count (130-400) K/uL MPV (7.2-11.7) fL Neut % (Auto) (50.0-75.0) % Lymph % (Auto) (20.0-40.0) % Stephens % (Auto) (0.0-10.0) % Eos % (Auto) (0.0-4.0) % Baso % (Auto) (0.0-2.0) % Neut # (1.8-7.0) K/uL Lymph # (1.0-4.3) K/uL Stephens # (0.0-0.8) K/uL Eos # (0.0-0.7) K/uL Baso # (0.0-0.2) K/uL Sodium (132-148) mmol/L Potassium (3.6-5.2) mmol/L Chloride (98-107) mmol/L Carbon Dioxide (22-30) mmol/L Anion Gap (10-20) BUN (9-20) mg/dL Creatinine (0.8-1.5) mg/dL Est GFR ( Amer) Est GFR (Non-Af Amer) POC Glucose (mg/dL) 170 H 211 H (65-110) mg/dL Random Glucose (75-110) mg/dL Hemoglobin A1c 8.8 H (4.2-6.5) % Calcium (8.6-10.4) mg/dl Magnesium (1.6-2.3) mg/dL Total Bilirubin (0.2-1.3) mg/dL AST (17-59) U/L ALT (21-72) U/L Alkaline Phosphatase (38-126) U/L Total Protein (6.3-8.3) g/dL Albumin (3.5-5.0) g/dL Globulin (2.2-3.9) gm/dL Albumin/Globulin Ratio (1.0-2.1) Triglycerides (0-149) mg/dL Cholesterol (0-199) mg/dL LDL Cholesterol Direct (0-129) mg/dL HDL Cholesterol (30-70) mg/dL TSH 3rd Generation (0.46-4.68) mIU/L Laboratory Results - last 24 hr 07/13/17 07/13/17 07/13/17 06:12 16:43 21:18 WBC RBC Hgb Hct MCV MCH MCHC RDW Plt Count MPV Neut % (Auto) Lymph % (Auto) Stephens % (Auto) Eos % (Auto) Baso % (Auto) Neut # Lymph # Stephens # Eos # Baso # Sodium Potassium Chloride Carbon Dioxide Anion Gap BUN Creatinine Est GFR ( Amer) Est GFR (Non-Af Amer) POC Glucose (mg/dL) 211 H 170 H Random Glucose Hemoglobin A1c 8.8 H Calcium Magnesium Total Bilirubin AST ALT Alkaline Phosphatase Total Protein Albumin Globulin Albumin/Globulin Ratio Triglycerides Cholesterol LDL Cholesterol Direct HDL Cholesterol TSH 3rd Generation 07/14/17 07/14/17 07/14/17 06:22 06:22 06:22 WBC 10.4 RBC 4.51 Hgb 14.0 Hct 40.5 MCV 89.8 MCH 31.0 MCHC 34.5 RDW 14.7 H Plt Count 281 MPV 8.3 Neut % (Auto) 74.5 Lymph % (Auto) 13.2 L Stephens % (Auto) 8.8 Eos % (Auto) 2.3 Baso % (Auto) 1.2 Neut # 7.7 H Lymph # 1.4 Stephens # 0.9 H Eos # 0.2 Baso # 0.1 Sodium 132 Potassium 4.0 Chloride 100 Carbon Dioxide 25 Anion Gap 10 BUN 11 Creatinine 0.7 L Est GFR ( Amer) > 60 Est GFR (Non-Af Amer) > 60 POC Glucose (mg/dL) Random Glucose 224 H Hemoglobin A1c 8.8 H Calcium 8.0 L Magnesium 1.8 Total Bilirubin 0.8 AST 93 H D ALT 50 Alkaline Phosphatase 110 Total Protein 7.2 Albumin 3.7 Globulin 3.5 Albumin/Globulin Ratio 1.1 Triglycerides 444 H D Cholesterol 212 H LDL Cholesterol Direct 91 HDL Cholesterol 39 TSH 3rd Generation 0.45 L 07/14/17 07/14/17 07/14/17 07:29 12:11 16:04 WBC RBC Hgb Hct MCV MCH MCHC RDW Plt Count MPV Neut % (Auto) Lymph % (Auto) Stephens % (Auto) Eos % (Auto) Baso % (Auto) Neut # Lymph # Stephens # Eos # Baso # Sodium Potassium Chloride Carbon Dioxide Anion Gap BUN Creatinine Est GFR ( Amer) Est GFR (Non-Af Amer) POC Glucose (mg/dL) 170 H 161 H 164 H Random Glucose Hemoglobin A1c Calcium Magnesium Total Bilirubin AST ALT Alkaline Phosphatase Total Protein Albumin Globulin Albumin/Globulin Ratio Triglycerides Cholesterol LDL Cholesterol Direct HDL Cholesterol TSH 3rd Generation Fingerstick Blood Sugar Results: 161 Critical Care Progress Note - Nutrition Nutrition: Nutrition Category Date Time Status low cholestrol [Heart Healthy Diet] [DIET] Diets 07/13/17 Lunch Active
--- NOTE | 2017-07-14 19:16 | CP.PCM.PN ---
Subjective - Date & Time of Evaluation Date of Evaluation: 07/14/17 Time of Evaluation: 19:14 - Subjective Subjective: feeling fine no cp Objective - Vital Signs/Intake and Output Vital Signs (last 24 hours): Temp Pulse Resp BP Pulse Ox 98 F 89 13 140/89 98 07/14/17 15:25 07/14/17 19:00 07/14/17 19:00 07/14/17 18:21 07/14/17 19:00 Intake and Output: 07/14/17 07/15/17 18:59 06:59 Intake Total 1300 Output Total 800 Balance 500 - Medications Medications: Current Medications Aspirin (Ecotrin) 81 mg PO DAILY [facility] Last Admin: 07/14/17 13:37 Dose: 81 mg Famotidine (Pepcid) 40 mg PO DAILY [facility] Last Admin: 07/14/17 13:45 Dose: 40 mg Insulin Human Regular (Novolin R) 0 unit SC ACHS [facility] PRN Reason: Protocol Last Admin: 07/14/17 16:45 Dose: 2 unit Lisinopril (Zestril) 10 mg PO DAILY [facility] Last Admin: 07/14/17 13:38 Dose: 10 mg Metformin HCl (Glucophage) 500 mg PO BID [facility] Metoprolol Succinate (Toprol Xl) 25 mg PO DAILY [facility] Last Admin: 07/14/17 13:37 Dose: 25 mg Nicotine (Nicoderm Cq) 1 patch TD DAILY [facility] Last Admin: 07/14/17 11:03 Dose: 1 patch Pneumococcal Polyvalent Vaccine (Pneumovax 23 Vaccine) 0.5 ml IM .ONCE ONE Stop: 07/15/17 10:01 Rosuvastatin Calcium (Crestor) 20 mg PO HS [facility] Last Admin: 07/13/17 21:20 Dose: 20 mg Ticagrelor (Brilinta) 90 mg PO BID [facility] Last Admin: 07/14/17 18:41 Dose: 90 mg - Labs Labs: 07/14/17 06:22 07/14/17 06:22 PT 10.8 SECONDS (9.7-12.2) 07/13/17 06:12 INR 1.0 07/13/17 06:12 APTT 29 SECONDS (21-34) 07/13/17 06:12 - Constitutional Appears: Well - Head Exam Head Exam: ATRAUMATIC, NORMAL INSPECTION, NORMOCEPHALIC - Eye Exam Eye Exam: EOMI, Normal appearance, PERRL Pupil Exam: NORMAL ACCOMODATION, PERRL - ENT Exam ENT Exam: Mucous Membranes Moist, Normal Exam - Neck Exam Neck Exam: Full ROM, Normal Inspection. absent: Lymphadenopathy - Respiratory Exam Respiratory Exam: Clear to Ausculation Bilateral, NORMAL BREATHING PATTERN - Cardiovascular Exam Cardiovascular Exam: REGULAR RHYTHM, +S1, +S2, Murmur - GI/Abdominal Exam GI & Abdominal Exam: Soft, Normal Bowel Sounds. absent: Tenderness - Extremities Exam Extremities Exam: Full ROM, Normal Capillary Refill, Normal Inspection. absent : Joint Swelling, Pedal Edema - Back Exam Back Exam: NORMAL INSPECTION - Neurological Exam Neurological Exam: Alert, Awake, CN II-XII Intact, Normal Gait, Oriented x3 - Psychiatric Exam Psychiatric exam: Normal Affect, Normal Mood - Skin Skin Exam: Dry, Intact, Normal Color, Warm Assessment and Plan (1) STEMI (ST elevation myocardial infarction) Assessment & Plan: cont dapt echo pending cont gdmt - bb, statins, acei Status: Acute (2) HTN (hypertension) Assessment & Plan: cont current meds Status: Acute (3) Lipid disorder Status: Acute (4) Morbid obesity Status: Chronic (5) Tobacco abuse Status: Chronic
[2017-07-15 06:40] LABS: BASO % 0.5 % (0.0-2.0); EOS # 0.3 K/uL (0.0-0.7); EOS % 2.9 % (0.0-4.0); HEMATOCRIT 39.8 % (35.0-51.0); LYMPH # 1.5 K/uL (1.0-4.3); LYMPH % 15.9 % (20.0-40.0); MEAN CELL VOLUME 89.8 fL (80.0-94.0); MEAN CORPUSCULAR HEMOGLOBIN 31.3 pg (27.0-31.0); MEAN CORPUSCULAR HGB CONC 34.9 g/dL (33.0-37.0); MEAN PLATELET VOLUME 8.4 fL (7.2-11.7); MONO # 0.8 K/uL (0.0-0.8); MONO % 8.7 % (0.0-10.0); NRBC % 0.1 % (0.0-2.0); RED CELL DISTRIBUTION WIDTH 14.7 % (11.5-14.5); WHITE BLOOD COUNT 9.5 K/uL (4.8-10.8)
[2017-07-15 06:58] LABS: ALKALINE PHOSPHATASE 114 U/L (38-126); ALT/SGPT 43 U/L (21-72); AST/SGOT 48 U/L (17-59); BILIRUBIN,TOTAL 0.8 mg/dL (0.2-1.3); BLOOD UREA NITROGEN 12 mg/dL (9-20); CALCIUM 8.3 mg/dl (8.6-10.4); CARBON DIOXIDE 27 mmol/L (22-30); CHLORIDE 100 mmol/L (98-107); GFR AFRICAN-AMERICAN > 60; GLUCOSE,RANDOM 209 mg/dL (75-110); MAGNESIUM 1.7 mg/dL (1.6-2.3); PHOSPHOROUS 3.6 mg/dL (2.5-4.5); SODIUM 132 mmol/L (132-148); TOTAL PROTEIN 7.6 g/dL (6.3-8.3)
[2017-07-15] MEDS: (Novolin R) Insulin Human Regular 100 units/ml vial SC SCH ×4 (07:50→16:40)
[2017-07-15] MEDS ORDERED: Pneumococcal 23-Valent Vaccine IM ONE (10:00)
[2017-07-15] MEDS ORDERED: Influenza Vaccine 60 mcg/0.5 mL SYR (4YR UP) IM ONE (10:00)
[2017-07-15] MEDS: Metoprolol Succinate 25 mg XL Tab PO SCH ×2 (11:06→11:11)
--- NOTE | 2017-07-15 11:53 | CP.PCM.PN ---
Subjective - Date & Time of Evaluation Date of Evaluation: 07/15/17 Time of Evaluation: 11:45 - Subjective Subjective: Patient was seen and examined. He is S/P cardiac catherization and stent placement on 06/13. He is on ASA, Brillinta, Crestor, Toprol. This is my first time meeting patient so I had to review previous notes Patient reports he feels well. He denied chest pain, denied shortness of breath. He asked to go home soon. He just had an echo this morning, pending read at the moment. His other risk factors includ HTN, DM, as well as active smoking. In particular we talked about smoking. Objective - Vital Signs/Intake and Output Vital Signs (last 24 hours): Temp Pulse Resp BP Pulse Ox 98.2 F 65 20 115/87 98 07/15/17 03:00 07/15/17 08:21 07/15/17 08:21 07/15/17 08:21 07/15/17 08:00 Intake and Output: 07/15/17 07/15/17 06:59 18:59 Intake Total 1660 Output Total 800 Balance 860 - Medications Medications: Current Medications Aspirin (Ecotrin) 81 mg PO DAILY [facility] [place] Last Admin: 07/15/17 11:08 Dose: 81 mg Famotidine (Pepcid) 40 mg PO DAILY [facility] Last Admin: 07/15/17 11:05 Dose: 40 mg Insulin Human Regular (Novolin R) 0 unit SC ACHS [facility] [place] PRN Reason: Protocol Last Admin: 07/15/17 08:00 Dose: 2 unit Lisinopril (Zestril) 10 mg PO DAILY [facility] Last Admin: 07/15/17 11:13 Dose: 10 mg Metformin HCl (Glucophage) 500 mg PO BID [facility] [place] Last Admin: 07/15/17 10:00 Dose: 500 mg Metoprolol Succinate (Toprol Xl) 25 mg PO DAILY [facility] [place] Last Admin: 07/15/17 11:11 Dose: 25 mg Nicotine (Nicoderm Cq) 1 patch TD DAILY [facility] [place] Last Admin: 07/15/17 11:09 Dose: 1 patch Rosuvastatin Calcium (Crestor) 20 mg PO HS [facility] [place] Last Admin: 07/14/17 22:45 Dose: 20 mg Ticagrelor (Brilinta) 90 mg PO BID [facility] [place] Last Admin: 07/14/17 18:41 Dose: 90 mg - Labs Labs: 07/15/17 06:24 07/15/17 06:25 PT 10.8 SECONDS (9.7-12.2) 07/13/17 06:12 INR 1.0 07/13/17 06:12 APTT 29 SECONDS (21-34) 07/13/17 06:12 - Constitutional Appears: Well, No Acute Distress - Head Exam Head Exam: NORMAL INSPECTION, NORMOCEPHALIC - Eye Exam Eye Exam: EOMI, Normal appearance - ENT Exam ENT Exam: Mucous Membranes Moist - Respiratory Exam Respiratory Exam: Clear to Ausculation Bilateral, NORMAL BREATHING PATTERN - Cardiovascular Exam Cardiovascular Exam: REGULAR RHYTHM - GI/Abdominal Exam GI & Abdominal Exam: Soft, Normal Bowel Sounds - Neurological Exam Neurological Exam: Alert, Awake, Oriented x3 Neuro motor strength exam: Left Upper Extremity: 5, Right Upper Extremity: 5, Left Lower Extremity: 5, Right Lower Extremity: 5 - Psychiatric Exam Psychiatric exam: Normal Affect, Normal Mood - Skin Skin Exam: Normal Color, Warm Assessment and Plan - Assessment and Plan (Free Text) Assessment: Assessment and Plan (1) STEMI (ST elevation myocardial infarction) 07/15: Patient is POD 2 of cardiac cath with placement of stenting. He had an echo this morning - results pending RCA lesion Aspirin, Crestor, Toprol, Brillinta (2) Diabetes 07/15: On ACEI, also accuchecks are 160s to 170s range Acute, newly diagnosed Extensive discussion in regards to diabetes. Director Of Hospitality referral Metformin 1000mg PO BID-->will start tomorrow in light of cardiac cath Advised weight loss modifications (3) Hypertension 07/15: Currently systolic in the 110s [place], Enalapril. (4) Tobacco abuse 07/15: My colleagues emphasized this and so have I. However I need to record that he did not seem to take our conversation seriously Advised tobacco cessation Very detailed discussion about the adverse side effects of continued smoking (5) Lipid disorder Elevated TG, and elevated cholesterol Low HDL Will start [place] 3- FAs; will need OTC Fish oil upon discharge Advised lifestyle and diet modifications (6) Morbid obesity Advised to make diet modifications Poses additional risks for his diabetes, cad, lipid disorder, and weight loss will help to make improvements to all (7) Prophylactic measure pepcid 40mg PO daily Aspirin 81mg PO daily Brilinta 90mg PO BID
--- NOTE | 2017-07-15 18:45 | CP.PCM.PN ---
Subjective - Date & Time of Evaluation Date of Evaluation: 07/15/17 Time of Evaluation: 18:43 - Subjective Subjective: no complaints echo done - EF 55% Objective - Vital Signs/Intake and Output Vital Signs (last 24 hours): Temp Pulse Resp BP Pulse Ox 98.2 F 68 17 102/72 95 07/15/17 03:00 07/15/17 16:00 07/15/17 16:00 07/15/17 15:21 07/15/17 16:00 Intake and Output: 07/15/17 07/15/17 06:59 18:59 Intake Total 1660 480 Output Total 800 Balance 860 480 - Medications Medications: Current Medications Aspirin (Ecotrin) 81 mg PO DAILY [facility] Last Admin: 07/15/17 11:08 Dose: 81 mg Famotidine (Pepcid) 40 mg PO DAILY [facility] Last Admin: 07/15/17 11:05 Dose: 40 mg Insulin Human Regular (Novolin R) 0 unit SC ACHS [facility] PRN Reason: Protocol Last Admin: 07/15/17 16:40 Dose: Not Given Lisinopril (Zestril) 10 mg PO DAILY [facility] Last Admin: 07/15/17 11:13 Dose: 10 mg Metformin HCl (Glucophage) 500 mg PO BID [facility] Last Admin: 07/15/17 17:40 Dose: 500 mg Metoprolol Succinate (Toprol Xl) 25 mg PO DAILY [facility] Last Admin: 07/15/17 11:11 Dose: 25 mg Nicotine (Nicoderm Cq) 1 patch TD DAILY [facility] Last Admin: 07/15/17 11:09 Dose: 1 patch Rosuvastatin Calcium (Crestor) 20 mg PO HS [facility] Last Admin: 07/14/17 22:45 Dose: 20 mg Ticagrelor (Brilinta) 90 mg PO BID [facility] Last Admin: 07/15/17 17:40 Dose: 90 mg - Labs Labs: 07/15/17 06:24 07/15/17 06:25 PT 10.8 SECONDS (9.7-12.2) 07/13/17 06:12 INR 1.0 07/13/17 06:12 APTT 29 SECONDS (21-34) 07/13/17 06:12 - Constitutional Appears: Well - Head Exam Head Exam: ATRAUMATIC, NORMAL INSPECTION, NORMOCEPHALIC - Eye Exam Eye Exam: EOMI, Normal appearance, PERRL Pupil Exam: NORMAL ACCOMODATION, PERRL - ENT Exam ENT Exam: Mucous Membranes Moist, Normal Exam - Neck Exam Neck Exam: Full ROM, Normal Inspection. absent: Lymphadenopathy - Respiratory Exam Respiratory Exam: Clear to Ausculation Bilateral, NORMAL BREATHING PATTERN - Cardiovascular Exam Cardiovascular Exam: REGULAR RHYTHM, +S1, +S2. absent: Murmur - GI/Abdominal Exam GI & Abdominal Exam: Soft, Normal Bowel Sounds. absent: Tenderness - Extremities Exam Extremities Exam: Full ROM, Normal Capillary Refill, Normal Inspection. absent : Joint Swelling, Pedal Edema - Back Exam Back Exam: NORMAL INSPECTION - Neurological Exam Neurological Exam: Alert, Awake, CN II-XII Intact, Normal Gait, Oriented x3 - Psychiatric Exam Psychiatric exam: Normal Affect, Normal Mood - Skin Skin Exam: Dry, Intact, Normal Color, Warm Assessment and Plan (1) STEMI (ST elevation myocardial infarction) Assessment & Plan: cont DAPT x 1 year GDMT for CAD BB, statins, ACEi f/u in 1-2 weeks Status: Acute (2) HTN (hypertension) Assessment & Plan: cont current meds Status: Acute (3) Lipid disorder Assessment & Plan: cont statins Status: Acute (4) Morbid obesity Status: Chronic (5) Tobacco abuse Assessment & Plan: counselled for smoking cessation Status: Chronic
--- NOTE | 2017-07-15 19:01 | CP.PCM.DIS ---
Provider - Provider Date of Admission: 07/13/17 06:18 Attending physician: Jak Borrero DO Consults: Cardiology ~ Dr Roberson Time Spent in preparation of Discharge (in minutes): 29 Hospital Course - Lab Results Lab Results: Micro Results 07/13/17 Unknown Naris MRSA Culture (Admit) - Final MRSA NOT DETECTED Most Recent Lab Values WBC 9.5 K/uL (4.8-10.8) 07/15/17 06:24 RBC 4.43 Mil/uL (4.40-5.90) 07/15/17 06:24 Hgb 13.9 g/dL (12.0-18.0) 07/15/17 06:24 Hct 39.8 % (35.0-51.0) 07/15/17 06:24 MCV 89.8 fL (80.0-94.0) 07/15/17 06:24 MCH 31.3 pg (27.0-31.0) H 07/15/17 06:24 MCHC 34.9 g/dL (33.0-37.0) 07/15/17 06:24 RDW 14.7 % (11.5-14.5) H 07/15/17 06:24 Plt Count 279 K/uL (130-400) 07/15/17 06:24 MPV 8.4 fL (7.2-11.7) 07/15/17 06:24 Neut % (Auto) 72.0 % (50.0-75.0) 07/15/17 06:24 Lymph % (Auto) 15.9 % (20.0-40.0) L 07/15/17 06:24 Wheeler % (Auto) 8.7 % (0.0-10.0) 07/15/17 06:24 Eos % (Auto) 2.9 % (0.0-4.0) 07/15/17 06:24 Baso % (Auto) 0.5 % (0.0-2.0) 07/15/17 06:24 Neut # 6.8 K/uL (1.8-7.0) 07/15/17 06:24 Lymph # 1.5 K/uL (1.0-4.3) 07/15/17 06:24 Wheeler # 0.8 K/uL (0.0-0.8) 07/15/17 06:24 Eos # 0.3 K/uL (0.0-0.7) 07/15/17 06:24 Baso # 0.0 K/uL (0.0-0.2) 07/15/17 06:24 PT 10.8 SECONDS (9.7-12.2) 07/13/17 06:12 INR 1.0 07/13/17 06:12 APTT 29 SECONDS (21-34) 07/13/17 06:12 Sodium 132 mmol/L (132-148) 07/15/17 06:25 Potassium 4.0 mmol/L (3.6-5.2) 07/15/17 06:25 Chloride 100 mmol/L (98-107) 07/15/17 06:25 Carbon Dioxide 27 mmol/L (22-30) 07/15/17 06:25 Anion Gap 9 (10-20) L 07/15/17 06:25 BUN 12 mg/dL (9-20) 07/15/17 06:25 Creatinine 0.7 mg/dL (0.8-1.5) L 07/15/17 06:25 Est GFR ( Amer) > 60 07/15/17 06:25 Est GFR (Non-Af Amer) > 60 07/15/17 06:25 POC Glucose (mg/dL) 140 mg/dL (65-110) H 07/15/17 16:19 Random Glucose 209 mg/dL (75-110) H 07/15/17 06:25 Hemoglobin A1c 8.8 % (4.2-6.5) H 07/14/17 06:22 Calcium 8.3 mg/dl (8.6-10.4) L 07/15/17 06:25 Phosphorus 3.6 mg/dL (2.5-4.5) 07/15/17 06:25 Magnesium 1.7 mg/dL (1.6-2.3) 07/15/17 06:25 Total Bilirubin 0.8 mg/dL (0.2-1.3) 07/15/17 06:25 AST 48 U/L (17-59) 07/15/17 06:25 ALT 43 U/L (21-72) 07/15/17 06:25 Alkaline Phosphatase 114 U/L (38-126) 07/15/17 06:25 Total Creatine Kinase 752 U/L (55-170) H 07/13/17 11:39 CK-MB (Mass) 37.3 ng/mL (0.0-3.38) H 07/13/17 11:39 Troponin I 26.3000 ng/mL (0.00-0.120) H* 07/13/17 11:39 Total Protein 7.6 g/dL (6.3-8.3) 07/15/17 06:25 Albumin 3.8 g/dL (3.5-5.0) 07/15/17 06:25 Globulin 3.8 gm/dL (2.2-3.9) 07/15/17 06:25 Albumin/Globulin Ratio 1.0 (1.0-2.1) 07/15/17 06:25 Triglycerides 444 mg/dL (0-149) H D 07/14/17 06:22 Cholesterol 212 mg/dL (0-199) H 07/14/17 06:22 LDL Cholesterol Direct 91 mg/dL (0-129) 07/14/17 06:22 HDL Cholesterol 39 mg/dL (30-70) 07/14/17 06:22 TSH 3rd Generation 0.45 mIU/L (0.46-4.68) L 07/14/17 06:22 Blood Type O NEGATIVE 07/13/17 07:32 Antibody Screen Negative 07/13/17 07:32 - Hospital Course Hospital Course: This is a 52 year old male who came on 07/13 with chest pain at rest and determined to have an ST elevation of 2, 3, and AVF with further depressions changes in the lateral leads. He has a history of smoking for a very long time. Also a history of HTN and was determined to have DM (which he did not know about ) He immediately underwent cardiac catherization that morning when he came. He was given Brillinta PO, Heparin ggt, morphine, IVF. He was determined to have an RCA lesion and succesffuly had stent placement. He tolerated procedure well. He was then observed in the ICU. He was intially seen by my colleague yesterday and was demanding to leave. Today when I saw him on 07/15 he again felt that he was ready to leave. He had an echo done which was also evaluated by cardiology. Patient was discharged on 07/15. He has RX for Plavix, Statin, BB, ANOOP-I, Metformin, and needs to take a ASA 81 We urged him to stop smoking - however I need to record that he did not seem to take this advice seriously when I spoke to him about this. Hopefully he will follow up in the [facility]. We also emphasized to the patient he needs to take medication in order to minimize the chances of stent occlusion From the resident HPI: " This is a 52 year old male with no PMHx who comes in as a [facility]. Patient was awoken this morning with stabbing and squeezing chest pain localized along the left side of the chest wall. There is associated dyspnea, diaphoresis, numbness in both arms. Patient called the ambulance and EKG was taken en route which showed ST segment elevations in leads II, III, aVF and ST segment depressions in I and aVL. Patient was given full dose aspirin in the ambulance. In the ED, patient was given 1 inch of nitro-paste, 4 mg IV morphine, Brillinta 180, heparin bolus (then switched to drip). Patient states that his pain is now decreased to a 2/10 after medical management and is now not in acute distress. Patient is for cardiac cath. " Discharge Exam - Head Exam Head Exam: ATRAUMATIC, NORMAL INSPECTION, NORMOCEPHALIC - Eye Exam Eye Exam: EOMI, Normal appearance - ENT Exam ENT Exam: Mucous Membranes Moist - Respiratory Exam Respiratory Exam: Clear to PA & Lateral, NORMAL BREATHING PATTERN, UNREMARKABLE - Cardiovascular Exam Cardiovascular Exam: REGULAR RHYTHM - GI/Abdominal Exam GI & Abdominal Exam: Normal Bowel Sounds, Unremarkable - Neurological Exam Neurological exam: Alert, CN II-XII Intact, Oriented x3 - Psychiatric Exam Psychiatric exam: Normal Affect, Normal Mood - Skin Skin Exam: Normal Color, Warm Discharge Plan - Discharge Medications Prescriptions: Aspirin [Ecotrin] 81 mg PO DAILY #30 tabec Clopidogrel [Plavix] 75 mg PO DAILY #30 tab Lisinopril [Zestril] 10 mg PO DAILY #30 tab metFORMIN [glucOPHAGE] 500 mg PO BID #60 tab Metoprolol Succinate [Toprol XL] 25 mg PO DAILY #30 tab Simvastatin 10 mg PO DAILY #30 tablet - Follow Up Plan Condition: FAIR Disposition: HOME/ ROUTINE
[2017-07-15 19:03] VITALS: BP 120/74; PULSE 70; RESP 18; TEMP 98; O2SAT 100
--- NOTE | 2017-07-16 09:46 | CARD ---
APPROVED REPORT EKG Measurement Heart [id number] [place] [id number] [id number] <Conclusion> Normal sinus rhythm Minimal voltage criteria for LVH, may be normal variant Borderline ECG
--- NOTE | 2017-07-16 09:46 | CARD ---
APPROVED REPORT EKG Measurement Heart [id number] [place] [id number] [id number] <Conclusion> Normal sinus rhythm Minimal voltage criteria for LVH, may be normal variant Borderline ECG
--- NOTE | 2017-07-16 09:47 | CARD ---
APPROVED REPORT EKG Measurement Heart [id number] [place] [id number] <Conclusion> Sinus bradycardia ST & T wave abnormality, consider inferior ischemia Abnormal ECG
--- NOTE | 2017-07-16 09:47 | CARD ---
APPROVED REPORT EKG Measurement Heart [id number] [place] [id number] [id number] <Conclusion> Sinus bradycardia Moderate voltage criteria for LVH, may be normal variant Borderline ECG
--- NOTE | 2017-07-16 22:17 | CARD ---
APPROVED REPORT EXAM: Two-dimensional and M-mode echocardiogram with Doppler and color Doppler. Other Information Quality : GoodRhythm : INDICATION Cardiac Disease: CAD POST CATH RISK FACTORS Hypertension Hyperlipidemia Diabetes 2D DIMENSIONS IVSd1.0 (0.7-1.1cm)Aortic Root (2D)4.3 (2.0-3.7cm) LVDd4.6 (3.9-5.9cm)PWd1.1 (0.7-1.1cm) LVDs2.9 (2.5-4.0cm)FS (%) 38.0 % LVEF (%)54.0 (>50%) M-Mode DIMENSIONS Left Atrium (MM)3.60 (2.5-4.0cm)Aortic Root4.41 (2.2-3.7cm) Aortic Cusp Exc.2.22 (1.5-2.0cm) Mitral Valve MV E Jgayrovy80.2cm/sMV A Bgrqyemj36.2cm/sE/A ratio1.0 TDI E/Lateral E'0.0E/Medial E'0.0 Tricuspid Valve TR Peak [id number]/sTR Peak [id number] <Conclusion> Suboptimal study Left ventricle: thickness: normal; size: normal; overall ejection fraction: 50%: diastolic filling pressures: normal Mitral valve: annulus: normal: leaflets: normal: excursion: normal; no significant trans-mitral gradient: no significant incompetence: left atrium: normal Aortic valve: leaflets: normal: excursion: normal; no significant trans-aortic gradient: No significant incompetence: aortic root: normal Right sided Structures: Pulmonary valve: normal; no significant incompetence; Tricuspid valve: normal; no significant incompetence: Intra-cardiac hemodynamics: pulmonary systolic pressures: 36mmhg; central venous pressures: normal No pericardial effusion
== END 2017-07-15 19:40 | disposition home or self-care (01) | DRG 247 ==
LOC: C.ER 05:53 → C.9I 06:18
PROVIDERS: ADMIT Internal Medicine Interventional Cardiology; ATTEND Hospitalist
PROC: 027034Z Dilation of Coronary Artery, One Artery with Drug-eluting Intraluminal Device, Percutaneous Approach (ICD-10-PCS; principal; 2017-07-13)
PROC: 4A023N7 Measurement of Cardiac Sampling and Pressure, Left Heart, Percutaneous Approach (ICD-10-PCS; 2017-07-13)
PROC: B2111ZZ Fluoroscopy of Multiple Coronary Arteries using Low Osmolar Contrast (ICD-10-PCS; 2017-07-13)
DX: I21.19 ST elevation (STEMI) myocardial infarction involving other coronary artery of inferior wall (principal); E11.65 Type 2 diabetes mellitus with hyperglycemia; E66.01 Morbid (severe) obesity due to excess calories; F17.210 Nicotine dependence, cigarettes, uncomplicated; I25.10 Atherosclerotic heart disease of native coronary artery without angina pectoris; I10 Essential (primary) hypertension; E78.5 Hyperlipidemia, unspecified